=== PATIENT | male | born 2000 | race Caucasian/White ===

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

== ENCOUNTER 2021-09-05 22:38 | Emergency (ER) | payer MEDICAID, OTHER | END 2021-09-06 00:04 | disposition home or self-care (01) | LOC: DL.ED 22:38 | DX: R10.13 Epigastric pain (principal); K22.89 Other specified disease of esophagus; Z88.0 Allergy status to penicillin | CPT/HCPCS: 99283 ==

== ENCOUNTER 2024-12-01 23:42 | Emergency (ER) | payer SELFPAY ==
[2024-12-02] MEDS: Take Home: Ondansetron 4 MG Tab.DIS, 5 Tab Pack PO ONE (02:34)
== END 2024-12-02 03:10 | disposition home or self-care (01) ==
LOC: DL.ED 23:42
DX: S06.0XAA Concussion with loss of consciousness status unknown, initial encounter (principal); Z88.0 Allergy status to penicillin; Y04.8XXA Assault by other bodily force, initial encounter; Y93.89 Activity, other specified
CPT/HCPCS: 70450; 72125; 99283; 99284; Q0162